=== PATIENT | female | born 1985 | race Caucasian/White ===

== ENCOUNTER 2017-06-09 13:09 | Inpatient (IN) | payer MEDICAID ==
[2017-06-09] MEDS ORDERED: NORMAL SALINE 1000 ML 1,000 ML IV ONE ×2 (13:30→14:18)
[2017-06-09] MEDS ORDERED: ONDANSETRON HCL INJ/PF 4 MG/2 ML SDV IV ONE ×2 (13:30→18:27)
[2017-06-09] MEDS ORDERED: HYDROMORPHONE HCL INJ/PF 2 MG/ML AMPULE IV ONE (13:32)
--- NOTE | 2017-06-09 13:34 | ER Document Report ---
ED Medical Screen (RME) - General Chief Complaint: Abdominal Pain Stated Complaint: ABDOMINAL PAIN Time Seen by Provider: 06/09/17 13:27 Notes: 31-year-old female patient complaining of 4 days of severe abdomen and back pain. Some vomiting yesterday, reports large-volume liquid vomiting today on the way here. Prior history of excessive narcotic use, none found in the [place] database since prescription last filled near the end of December 2016. It appears clonazepam was also stopped the next month. See the print out from the [place] database for the last 2 years. I have greeted and performed a rapid initial assessment of this patient. A comprehensive ED assessment and evaluation of the patient, analysis of test results and completion of the medical decision making process will be conducted by additional ED providers. TRAVEL OUTSIDE OF THE U.S. IN LAST 30 DAYS: No - Related Data Allergies/Adverse Reactions: diphenhydramine [From Benadryl] Allergy (Verified 06/09/17 13:23) Past Medical History - Social History Family history: Malignancy - pancreatic, Other - crohn's disease Endocrine Medical History: Reports: Hx Diabetes Mellitus Type 1 Psychiatric Medical History: Reports: Hx Anxiety Past Surgical History: Reports: Hx Appendectomy
[2017-06-09] MEDS ORDERED: MORPHINE SULFATE 10 MG/ML INJ IV ONE (14:31)
[2017-06-09] MEDS ORDERED: FENTANYL CITRATE INJ/PF 100 MCG/2 ML AMPUL IV ONE ×2 (15:00→18:27)
[2017-06-09 16:02] LABS: APPEARANCE,URINE CLEAR; COLOR,URINE STRAW; GLUCOSE, URINE 1000 mg/dL (NEGATIVE)
[2017-06-09 16:03] LABS: BILIRUBIN,URINE NEGATIVE (NEGATIVE); KETONES,URINE 300 mg/dL (NEGATIVE); LEUKOCYTE ESTERASE,URINE NEGATIVE (NEGATIVE); NITRITE,URINE NEGATIVE (NEGATIVE); PROTEIN,URINE NEGATIVE (NEGATIVE); URINE SPECIFIC GRAVITY 1.024; UROBILINOGEN,URINE NEGATIVE mg/dL (<2.0)
[2017-06-09 16:38] LABS: ABSOLUTE BASOPHILS # (AUTO) 0.1 10^3/uL (0.0-0.2); ABSOLUTE LYMPHOCYTES (AUTO) 1.9 10^3/uL (0.5-4.7); ABSOLUTE MONOCYTES (AUTO) 0.8 10^3/uL (0.1-1.4); ABSOLUTE NEUT (AUTO) 15.8 10^3/uL (1.7-8.2); BASOPHILS % (AUTO) 0.4 % (0-2); HEMATOCRIT 41.6 % (36.0-47.0); LYMPHOCYTES % (AUTO) 10.2 % (13-45); MEAN CORPUSCULAR HEMOGLOBIN 30.2 pg (27.0-33.4); MEAN CORPUSCULAR HGB CONC 33.6 g/dL (32.0-36.0); MEAN CORPUSCULAR VOLUME 90 fl (80-97); MONOCYTES % (AUTO) 4.4 % (3-13); RED BLOOD COUNT 4.63 10^6/uL (3.72-5.28); RED CELL DISTRIBUTION WIDTH 12.7 % (11.5-14.0); TOTAL CELLS COUNTED % (AUTO) 100 %; WHITE BLOOD COUNT 18.5 10^3/uL (4.0-10.5)
[2017-06-09 16:44] LABS: VENOUS BLOOD BASE EXCESS -6.9 mmol/L; VENOUS BLOOD HCO3 18.6 mmol/L (20-32); VENOUS BLOOD PCO2 37.4 mmHg (35-63); VENOUS BLOOD PH 7.31 (7.30-7.42)
[2017-06-09 17:01] LABS: ALANINE AMINOTRANSFERASE 22 U/L (9-52); ALBUMIN 5.5 g/dL (3.5-5.0); ALKALINE PHOSPHATASE 87 U/L (38-126); ASPARTATE AMINO TRANSFERASE 16 U/L (14-36); BILIRUBIN,DIRECT 0.3 mg/dL (0.0-0.4); BILIRUBIN,TOTAL 0.5 mg/dL (0.2-1.3); BLOOD UREA NITROGEN 22 mg/dL (7-20); CHLORIDE 82 mmol/L (98-107); POTASSIUM 4.4 mmol/L (3.6-5.0); TOTAL PROTEIN 8.2 g/dL (6.3-8.2)
[2017-06-09 17:06] LABS: CARBON DIOXIDE 18 mmol/L (22-30); SODIUM 133.1 mmol/L (137-145)
[2017-06-09 17:16] LABS: ANION GAP 33 (5-19); GLUCOSE 458 mg/dL (75-110)
[2017-06-09 17:18] LABS: PLATELET COUNT 311 10^3/uL (150-450)
[2017-06-09] MEDS ORDERED: GLUCAGON,HUMAN RECOMB 1 MG INJ IM PRN (17:24)
[2017-06-09] MEDS ORDERED: DEXTROSE 40% GEL 15 GM TUBE PO PRN ×2 (17:24)
[2017-06-09] MEDS ORDERED: DEXTROSE 50%-WATER 25 GM/50 ML DISP.SYRIN IV PRN ×2 (17:24)
[2017-06-09] MEDS ORDERED: NORMAL SALINE 100 ML with INSULIN REGULAR, HUMAN 100 UNIT IV PRN ×2 (17:24)
[2017-06-09] MEDS ORDERED: POTASSI CL 20 MEQ/50 ML RIDER 20 MEQ/50 ML RTUPB IV ONE (17:28)
--- NOTE | 2017-06-09 17:54 | ER Document Report ---
ED GI/ - General Chief Complaint: Abdominal Pain Stated Complaint: ABDOMINAL PAIN Time Seen by Provider: 06/09/17 13:27 Mode of Arrival: Ambulatory Information source: Patient, Relative Notes: Patient is a 31-year-old female type I diabetic who presents to the ER today for abdominal pain and vomiting 4 days worsening, she does have chronic constipation and states that this is normal for her and it comes in waves. Patient has not had a good bowel movement in "I do not know when." Patient went to [facility] yesterday and they did x-rays of her abdomen, showing constipation, put her on lactulose. Patient's blood sugars have been running in the 400s over the last few days even though she has been taking her insulin as directed. Father is with her and states that she has been compliant with her medications. She denies any cough, upper respiratory symptoms, burning with urination, fevers or chills. She states that yesterday at [facility] they did not even check her blood sugar. TRAVEL OUTSIDE OF THE [place] IN LAST 30 DAYS: No - Related Data Allergies/Adverse Reactions: diphenhydramine [From Benadryl] Allergy (Verified 06/09/17 13:23) Past Medical History - General Information source: Patient, Parent - Social History Smoking Status: Current Every Day Smoker Frequency of alcohol use: None Drug Abuse: Marijuana Family History: Reviewed & Not Pertinent Patient has suicidal ideation: No Patient has homicidal ideation: No Endocrine Medical History: Reports: Hx Diabetes Mellitus Type 1 Renal/ Medical History: Denies: Hx Peritoneal Dialysis Psychiatric Medical History: Reports: Hx Anxiety, Hx Bipolar Disorder Past Surgical History: Reports: Hx Appendectomy Review of Systems - Review of Systems Constitutional: No symptoms reported EENT: No symptoms reported Cardiovascular: No symptoms reported Respiratory: No symptoms reported Gastrointestinal: See HPI Genitourinary: No symptoms reported Female Genitourinary: No symptoms reported Musculoskeletal: No symptoms reported Skin: No symptoms reported Hematologic/Lymphatic: No symptoms reported Neurological/Psychological: No symptoms reported Physical Exam - Vital signs Vitals: Temp Pulse Resp BP Pulse Ox 97.7 F 126 H 16 135/100 H 99 06/09/17 13:12 06/09/17 13:12 06/09/17 13:12 06/09/17 13:12 06/09/17 13:12 - Notes Notes: PHYSICAL EXAMINATION: GENERAL: Actively vomiting, writhing in pain, in moderate acute distress. HEAD: Atraumatic, normocephalic. EYES: Pupils equal round and reactive to light, extraocular movements intact, sclera anicteric, conjunctiva are normal. NECK: Normal range of motion, supple without lymphadenopathy LUNGS: CTAB and equal. No wheezes rales or rhonchi. HEART: Regular rate and rhythm without murmurs ABDOMEN: Soft, mild diffuse tenderness. No guarding, no rebound BACK: no vertebral tenderness, normal ROM GI/: no CVA tenderness EXTREMITIES: Normal range of motion, no pitting edema. No cyanosis. NEUROLOGICAL: Cranial nerves grossly intact. Normal sensory/motor exams. PSYCH: Tearful SKIN: Warm, Dry, normal turgor, no rashes or lesions noted Course - Re-evaluation Re-evalutation: 06/09/17 18:31 Glucose of 458, white blood cell count of 18.5, osmolality elevated at 304, anion gap of 33, bicarb of 18, patient is in DKA. Urinalysis negative for infection, CAT scan reveals no acute pathology of the abdomen and pelvis with IV and oral contrast. Dr. Capone accepts admission at this time for DKA. Patient started on insulin infusion, given potassium for the insulin infusion, 2 L of IV fluids, pain medication, nausea medication. Maintenance fluids. Nausea and vomiting at this time has subsided. 06/09/17 18:43 06/09/17 18:43 - Vital Signs Vital signs: Temp Pulse Resp BP Pulse Ox 97.7 F 126 H 16 135/100 H 99 06/09/17 13:12 06/09/17 13:12 06/09/17 13:12 06/09/17 13:12 06/09/17 13:12 - Laboratory Result Diagrams: 06/09/17 16:26 06/09/17 16:26 Laboratory results interpreted by me: 06/09/17 06/09/17 06/09/17 13:20 14:33 16:26 WBC 18.5 H Seg Neutrophils % 85.0 H Lymphocytes % 10.2 L Absolute Neutrophils 15.8 H VBG HCO3 Sodium Chloride Carbon Dioxide Anion Gap BUN Glucose POC Glucose 458 H* Serum Osmolality Albumin Urine Glucose (UA) 1000 H Urine Ketones 300 H Urine Blood SMALL H 06/09/17 06/09/17 06/09/17 16:26 16:26 16:26 WBC Seg Neutrophils % Lymphocytes % Absolute Neutrophils VBG HCO3 18.6 L Sodium 133.1 L Chloride 82 L Carbon Dioxide 18 L Anion Gap 33 H BUN 22 H Glucose 458 H* POC Glucose Serum Osmolality 304 H Albumin 5.5 H Urine Glucose (UA) Urine Ketones Urine Blood Discharge - Discharge Clinical Impression: DKA (diabetic ketoacidoses) Qualifiers: Diabetes mellitus type: type 1 Constipation Qualifiers: Constipation type: unspecified constipation type Qualified Code(s): K59.00 - Constipation, unspecified Condition: Stable Disposition: ADMITTED INPATIENT Admitting Provider: [facility] Unit Admitted: [facility]
[2017-06-09] MEDS ORDERED: RINGERS SOLUTION,LACTATED 1,000 ML IV PRN (17:55)
--- NOTE | 2017-06-09 17:59 | RADIOLOGY REPORT (SQ) ---
EXAM DESCRIPTION: CT ABD/PELVIS WITH IV ORAL COMPLETED DATE/TIME: 06/09/2017 5:46 pm REASON FOR STUDY: abd pain, vomiting COMPARISON: None. TECHNIQUE: CT scan of the abdomen and pelvis performed using helical scanning technique with dynamic intravenous contrast injection. No oral contrast. Images reviewed with lung, soft tissue, and bone windows. Reconstructed coronal and sagittal MPR images reviewed. Delayed images for evaluation of the urinary system also acquired. All images stored on PACS. All CT scanners at this facility use dose modulation, iterative reconstruction, and/or weight based d osing when appropriate to reduce radiation dose to as low as reasonably achievable (ALARA). [facility]: Dose Right [facility]: CareDose [facility]: Dose Right [facility]: Teradose 4D [facility]: [employer] CONTRAST TYPE AND DOSE: contrast/concentration: Isovue 370.00 mg/ml; Total Contrast Delivered: 69.0 ml; Total Saline Delivered: 63.0 ml RENAL FUNCTION: BUN 22 creatinine 0.88. RADIATION DOSE: CT Rad equipment meets quality standard of care and radiation dose reduction techniq ues were employed. CTDIvol: 5.2 - 6.1 mGy. DLP: 604 mGy-cm.. LIMITATIONS: None. FINDINGS: LOWER CHEST: No significant findings. No nodules or infiltrates. LIVER: Normal size. No masses. No dilated ducts. SPLEEN: Normal size. No focal lesions. PANCREAS: No masses. No significant calcifications. No adjacent inflammation or peripancreatic fluid collections. Pancreatic duct not dilated. GALLBLADDER: No identified stones by CT criteria. No inflammatory changes to suggest cholecystitis. ADRENAL GLANDS: No significant masses or asymmetry. RIGHT KIDNEY AND URETER: No solid masses. No significant calcifications. No hydronephrosis or hyd roureter. LEFT KIDNEY AND URETER: No solid masses. No significant calcifications. No hydronephrosis or hydr oureter. AORTA AND VESSELS: No aneurysm. No dissection. Renal arteries, SMA, celiac without stenosis. RETROPERITONEUM: No retroperitoneal adenopathy, hemorrhage or masses. BOWEL AND PERITONEAL CAVITY: No masses or inflammatory changes. No free fluid or peritoneal masses. APPENDIX: Surgically absent. PELVIS: No mass. No free fluid. Normal bladder. ABDOMINAL WALL: No masses. No hernias. BONES: No significant or acute findings. OTHER: No other significant finding. IMPRESSION: NO SIGNIFICANT OR ACUTE FINDING IN THE ABDOMEN OR PELVIS ON CT SCAN WITH IV CONTRAST. TECHNICAL DOCUMENTATION: JOB ID: [id number] Quality ID # [id number]: Final reports with documentation of one or more dose reduction techniques (e.g., Au tomated exposure control, adjustment of the mA and/or kV according to patient size, use of iterative reconstruction technique) 2010 [employer]- All Rights Reserved Reading location - IP/workstation name: [email or web address]
[2017-06-09] MEDS ORDERED: POTASSI CL 20 MEQ/50 ML RIDER 20 MEQ/50 ML RTUPB IV SCH (18:31)
[2017-06-09] MEDS ORDERED: NORMAL SALINE 1000 ML 2,000 ML IV ONE (18:32)
[2017-06-09] MEDS ORDERED: ACETAMINOPHEN 650 MG SUPP.RECT PR PRN (18:32)
[2017-06-09] MEDS ORDERED: IPRATROPIUM/ALBUTEROL 0.5-2.5 MG/3 ML AMPUL NEB PRN (18:32)
[2017-06-09] MEDS ORDERED: ONDANSETRON HCL INJ/PF 4 MG/2 ML SDV IV PRN (18:32)
[2017-06-09] MEDS ORDERED: PROMETHAZINE HCL 25 MG TABLET PO PRN (18:32)
[2017-06-09] MEDS ORDERED: ACETAMINOPHEN 325 MG TABLET PO PRN (18:32)
[2017-06-09] MEDS ORDERED: INSULIN REG, HUMAN 100 UNIT/ML 3 ML VIAL (PYX) ONE (18:35)
[2017-06-09] MEDS ORDERED: NA PHOS,M-B/NA PHOS,DI-BA (ADULT) 133 ML ENEMA PR PRN (18:36)
[2017-06-09] MEDS ORDERED: LACTULOSE SYRUP 20 GM/30 ML UDCUP PO ONE (19:00)
[2017-06-09 19:12] LABS: PHOSPHORUS 6.6 mg/dL (2.5-4.5)
[2017-06-09 19:27] LABS: URINE AMPHETAMINES SCREEN NEGATIVE; URINE BARBITURATES SCREEN NEGATIVE; URINE COCAINE SCREEN NEGATIVE; URINE METHADONE SCREEN NEGATIVE; URINE PHENCYCLIDINE SCREEN NEGATIVE
[2017-06-09 19:30] LABS: URINE BENZODIAZEPINES SCREEN UNCONFIRMED POSITIVE; URINE MARIJUANA (THC) SCREEN UNCONFIRMED POSITIVE
[2017-06-09] MEDS ORDERED: HALOPERIDOL LACTATE INJ 5 MG/1 ML VIAL IV ONE (20:00)
[2017-06-09 21:49] LABS: ALANINE AMINOTRANSFERASE 21 U/L (9-52); ALBUMIN 5.1 g/dL (3.5-5.0); ALKALINE PHOSPHATASE 70 U/L (38-126); ASPARTATE AMINO TRANSFERASE 15 U/L (14-36); BILIRUBIN,DIRECT 0.3 mg/dL (0.0-0.4); BILIRUBIN,TOTAL 0.5 mg/dL (0.2-1.3); BLOOD UREA NITROGEN 21 mg/dL (7-20); CARBON DIOXIDE 22 mmol/L (22-30); CHLORIDE 86 mmol/L (98-107); GLUCOSE 317 mg/dL (75-110); POTASSIUM 4.2 mmol/L (3.6-5.0); TOTAL PROTEIN 7.8 g/dL (6.3-8.2)
[2017-06-09 21:55] LABS: SODIUM 134.6 mmol/L (137-145)
[2017-06-09 21:56] LABS: ANION GAP 27 (5-19)
[2017-06-10 01:03] LABS: ANION GAP 18 (5-19); BLOOD UREA NITROGEN 22 mg/dL (7-20); CALCIUM 9.8 mg/dL (8.4-10.2); CARBON DIOXIDE 28 mmol/L (22-30); CHLORIDE 91 mmol/L (98-107); GLUCOSE 144 mg/dL (75-110); SODIUM 136.7 mmol/L (137-145)
[2017-06-10] MEDS: KETOROLAC TROMETHAMINE INJ/PF 30 MG/1 ML SDV IV PRN ×3 (01:25→20:09)
[2017-06-10] MEDS: HEPARIN SOD (PORCINE) 5,000 UNIT/ML 1 ML SYRINGE SUBCUT SCH ×2 (02:14→07:03)
[2017-06-10] MEDS ORDERED: HALOPERIDOL LACTATE INJ 5 MG/1 ML VIAL IV ONE (03:19)
[2017-06-10] MEDS ORDERED: LACTULOSE SYRUP 20 GM/30 ML UDCUP PO ONE (03:20)
[2017-06-10] MEDS ORDERED: POTASSI CL 20 MEQ/D5-1/2NS 1L 1,000 ML IV PRN ×2 (04:00→06:25)
[2017-06-10 06:06] LABS: ABSOLUTE BASOPHILS # (AUTO) 0.1 10^3/uL (0.0-0.2); ABSOLUTE EOSINOPHILS # (AUTO) 0.2 10^3/uL (0.0-0.6); ABSOLUTE LYMPHOCYTES (AUTO) 3.9 10^3/uL (0.5-4.7); ABSOLUTE MONOCYTES (AUTO) 1.3 10^3/uL (0.1-1.4); ABSOLUTE NEUT (AUTO) 8.4 10^3/uL (1.7-8.2); BASOPHILS % (AUTO) 0.7 % (0-2); EOSINOPHILS % (AUTO) 1.4 % (0-6); HEMATOCRIT 40.4 % (36.0-47.0); HEMOGLOBIN 13.8 g/dL (12.0-15.5); LYMPHOCYTES % (AUTO) 28.1 % (13-45); MEAN CORPUSCULAR HEMOGLOBIN 30.1 pg (27.0-33.4); MEAN CORPUSCULAR HGB CONC 34.2 g/dL (32.0-36.0); MEAN CORPUSCULAR VOLUME 88 fl (80-97); MONOCYTES % (AUTO) 9.4 % (3-13); PLATELET COUNT 285 10^3/uL (150-450); RED BLOOD COUNT 4.59 10^6/uL (3.72-5.28); RED CELL DISTRIBUTION WIDTH 12.7 % (11.5-14.0); SEGMENTED NEUTROPHILS % (AUTO) 60.4 % (42-78); TOTAL CELLS COUNTED % (AUTO) 100 %; WHITE BLOOD COUNT 13.9 10^3/uL (4.0-10.5)
[2017-06-10 06:20] LABS: ANION GAP 13 (5-19); BLOOD UREA NITROGEN 24 mg/dL (7-20); CALCIUM 9.2 mg/dL (8.4-10.2); CARBON DIOXIDE 29 mmol/L (22-30); CHLORIDE 93 mmol/L (98-107); GLUCOSE 165 mg/dL (75-110); POTASSIUM 4.4 mmol/L (3.6-5.0); SODIUM 135.2 mmol/L (137-145)
--- NOTE | 2017-06-10 06:20 | PDOC H&P ---
History of Present Illness Admission Date/PCP: 06/09/17 19:14 Patient complains of: Abdominal pain, nausea and vomiting History of Present Illness: LIZA TOLEDO is a 31 year old female with a past medical history of bipolar depression, type 1 diabetes, polypharmacy, opiate seeking, chronic constipation , substance and tobacco abuse. Patient presents with dramatic complaint of nausea, vomiting and abdominal and acute on chronic back pain with severe constipation.. Patient is disheveled, accompanied by her father and examined with a nurse shuttle bus driver. Patient admits several days of nausea vomiting, excessive thirst and polyuria intolerant of p.o. and subsequent discontinuation of insulin despite uncontrolled hyperglycemia. Patient recognizes these symptoms as Diabetic ketoacidosis. Patient states she was recently evaluated at [facility] but discharged without documentation. Workup in the emergency room is significant for metabolic acidosis and constipation but negative for additional CT findings of the abdomen and pelvis. Patient insists CT imaging and report is false stating an endoscopy capsule has not yet passed. Review of the images do not reveal endoscopy capsule. Past Medical History Cardiac Medical History: Reports: None Pulmonary Medical History: Reports: None EENT Medical History: Reports: None Endocrine Medical History: Reports: Diabetes Mellitus Type 1 Renal/ Medical History: Reports: None Malignancy Medical History: Reports: None GI Medical History: Reports: None Musculoskeltal Medical History: Reports: Arthritis Skin Medical History: Reports: None Psychiatric Medical History: Reports: Bipolar Disorder, Substance Abuse, Tobacco Dependency Traumatic Medical History: Reports: None Hematology: Reports: None Infectious Medical History: Reports: None Past Surgical History Past Surgical History: Reports: Appendectomy Social History Information Source: Patient, [facility] Records Smoking Status: Current Every Day Smoker Drugs: Marijuana Hx Prescription Drug Abuse: Yes - See ER documentation of September 23, 2015 - Advance Directive Resuscitation Status: Full Code Family History Family History: None Parental Family History Reviewed: No - Patient agitation and uncooperative Children Family History Reviewed: NA - Patient uncooperative Sibling(s) Family History Reviewed.: NA Medication/Allergy Allergies/Adverse Reactions: diphenhydramine [From Benadryl] Allergy (Verified 06/09/17 13:23) Review of Systems ROS unobtainable: Due to mental status - Patient with decompensated bipolar with delusion Physical Exam Vital Signs: Temp Pulse Resp BP Pulse Ox 97.7 F 126 H 14 118/64 97 06/09/17 13:12 06/09/17 13:12 06/10/17 05:01 06/10/17 05:01 06/10/17 05:01 General appearance: PRESENT: cooperative, disheveled, severe distress, thin Head exam: PRESENT: atraumatic, normocephalic Eye exam: PRESENT: conjunctiva pink, EOMI, PERRLA. ABSENT: scleral icterus Ear exam: PRESENT: normal external ear exam Mouth exam: PRESENT: dry mucosa, tongue midline Teeth exam: PRESENT: poor dentation Neck exam: ABSENT: carotid bruit, JVD, lymphadenopathy, thyromegaly Respiratory exam: PRESENT: accessory muscle use, clear to auscultation radha, tachypnea. ABSENT: rales, rhonchi, wheezes Cardiovascular exam: PRESENT: RRR. ABSENT: diastolic murmur, rubs, systolic murmur Pulses: PRESENT: normal dorsalis pedis pul Vascular exam: PRESENT: normal capillary refill GI/Abdominal exam: PRESENT: hypoactive bowel sounds, soft, tenderness. ABSENT: ascites, diminished bowel sounds, distended, firm, guarding, hernia, mass Rectal exam: PRESENT: deferred Extremities exam: PRESENT: full ROM. ABSENT: calf tenderness, clubbing, pedal edema Neurological exam: PRESENT: alert, awake, oriented to person, oriented to place , oriented to time, oriented to situation, CN II-XII grossly intact. ABSENT: motor sensory deficit Psychiatric exam: PRESENT: agitated, anxious, manic. ABSENT: homicidal ideation , suicidal ideation Focused psych exam: PRESENT: delusional Skin exam: PRESENT: dry, intact, warm. ABSENT: cyanosis, rash Results Laboratory Results: 06/09/17 06/10/17 21:15 00:10 Sodium 134.6 L 136.7 L Potassium 4.2 4.0 Chloride 86 L 91 L Carbon Dioxide 22 28 Anion Gap 27 H 18 BUN 21 H 22 H Creatinine 0.82 0.76 Est GFR ( Amer) > 60 > 60 Est GFR (Non-Af Amer) > 60 > 60 Glucose 317 H 144 H Calcium 10.0 9.8 Total Bilirubin 0.5 AST 15 ALT 21 Alkaline Phosphatase 70 Total Protein 7.8 Albumin 5.1 H Impressions: Abdomen/Pelvis CT 06/09/17 00:00 IMPRESSION: NO SIGNIFICANT OR ACUTE FINDING IN THE ABDOMEN OR PELVIS ON CT SCAN WITH IV CONTRAST. Assessment & Plan - Diagnosis (1) DKA (diabetic ketoacidoses) Qualifiers: Diabetes mellitus type: type 1 Is this a current diagnosis for this admission?: Yes Plan: Diabetic ketoacidosis patient has had some degree of polyuria polydipsia with nausea and uncontrolled hyperglycemia with supporting labs. Patient will receive IV fluids IV insulin serial chemistries every 6 hours for evaluation for electrolyte repletion. Continued evaluation for underlying cause if not found Patient will require diabetic education and consideration of mental health evaluation. (2) Bipolar affective Is this a current diagnosis for this admission?: Yes Plan: Haldol IV as needed consider mental health consult if not improved (3) Acute exacerbation of chronic low back pain Is this a current diagnosis for this admission?: Yes Plan: Patient provides contradictory history, please see ER provider documentation from September 23, 2015 (4) Constipation Qualifiers: Constipation type: unspecified constipation type Qualified Code(s): K59.00 - Constipation, unspecified Is this a current diagnosis for this admission?: Yes Plan: Bowel regiment, Fleet enema, lactulose twice daily - Time Time Spent: 50 to 70 Minutes - Inpatient Certification Medical Necessity: Need Close Monitoring Due to Risk of Patient Decompensation
[2017-06-10] MEDS: DOCUSATE SODIUM 100 MG CAPSULE PO SCH ×2 (09:59→17:15)
[2017-06-10 10:27] LABS: PHOSPHORUS 3.6 mg/dL (2.5-4.5)
[2017-06-10] MEDS ORDERED: (PENDING PHARMACY ID) (Lactulose [Enulose 10 Gm/15 Ml Oral Solution] 30 ML) PO PRN (10:52)
[2017-06-10] MEDS ORDERED: NORMAL SALINE 1000 ML 1,000 ML IV PRN (10:58)
[2017-06-10] MEDS ORDERED: (PENDING PHARMACY ID) (Quetiapine Fumarate [Seroquel] 50 MG) PO SCH (11:00)
[2017-06-10] MEDS ORDERED: (PENDING PHARMACY ID) (Clonazepam [Klonopin] 0.25 MG) PO SCH (11:00)
[2017-06-10] MEDS ORDERED: INSULIN LISPRO 100 UNIT/ML 3 ML VIAL SUBCUT SCH (11:00)
[2017-06-10] MEDS ORDERED: INSULIN DETEMIR 100 UNIT/ML 3 ML PEN SUBCUT ONE (12:30)
[2017-06-10] MEDS ORDERED: INSULIN REG, HUMAN 100 UNIT/ML 3 ML VIAL (PYX) SUBCUT PRN ×2 (12:40→15:13)
[2017-06-10] MEDS ORDERED: LACTULOSE SYRUP 20 GM/30 ML UDCUP PO PRN (12:46)
[2017-06-10] MEDS ORDERED: CLONAZEPAM 1 MG TABLET PO ONE (13:00)
[2017-06-10] MEDS ORDERED: QUETIAPINE FUMARATE 25 MG TABLET PO ONE (13:00)
[2017-06-10 13:07] LABS: ANION GAP 17 (5-19); BLOOD UREA NITROGEN 23 mg/dL (7-20); CALCIUM 9.2 mg/dL (8.4-10.2); CARBON DIOXIDE 26 mmol/L (22-30); CHLORIDE 90 mmol/L (98-107); GLUCOSE 287 mg/dL (75-110); POTASSIUM 4.3 mmol/L (3.6-5.0); SODIUM 132.5 mmol/L (137-145)
[2017-06-10] MEDS: INSULIN LISPRO 100 UNIT/ML 3 ML VIAL SUBCUT PRN (13:07)
[2017-06-10] MEDS: DIVALPROEX SODIUM 500 MG TAB.SR.24H PO SCH ×2 (14:39→23:35)
[2017-06-10] MEDS: HYDROXYZINE PAMOATE 50 MG CAPSULE PO SCH ×2 (14:41→23:35)
[2017-06-10] MEDS ORDERED: HYDROMORPHONE HCL INJ/PF 2 MG/ML AMPULE IV PRN (14:53)
--- NOTE | 2017-06-10 15:06 | Progress Note ---
Provider Note Provider Note: Patient was see in the ER briefly for complaints of back pain. Vital signs blood pressure 112/66, heart rate 116 Respiratory rate 12 Sats 97% on room air Temperature not recorded Weak chronically ill-appearing female sitting up in bed appears uncomfortable. She is tearful. Lungs: Clear to auscultation bilaterally no use of accessory muscles no wheezing or crackles heard Cardiac: S1-S2 regular no peripheral edema no calf tenderness Abdomen: Soft, no focal tenderness Back: She has some nonspecific mild muscle tenderness along her entire back. Plan: DKA has resolved. Insulin drip switched off. She has been started back on Lantus and aspart with meals. Diabetic diet. Ordered lactulose the clock and an enema for her constipation. I discussed the plan of care with her father also is requesting that her constipation be treated. Refer for the rest of plan of care the history and physical done this morning.
[2017-06-10] MEDS ORDERED: DEXTROSE 50%-WATER 25 GM/50 ML DISP.SYRIN IV PRN ×2 (15:13)
[2017-06-10] MEDS ORDERED: DEXTROSE 40% GEL 15 GM TUBE PO PRN ×2 (15:13)
[2017-06-10] MEDS ORDERED: GLUCAGON,HUMAN RECOMB 1 MG INJ IM PRN (15:13)
[2017-06-10] MEDS: LACTULOSE SYRUP 20 GM/30 ML UDCUP PO SCH ×2 (17:15→23:35)
[2017-06-10] MEDS ORDERED: FENTANYL CITRATE INJ/PF 100 MCG/2 ML AMPUL IV ONE (18:30)
[2017-06-10 19:08] LABS: ANION GAP 13 (5-19); BLOOD UREA NITROGEN 25 mg/dL (7-20); CALCIUM 9.7 mg/dL (8.4-10.2); CARBON DIOXIDE 28 mmol/L (22-30); CHLORIDE 94 mmol/L (98-107); GLUCOSE 195 mg/dL (75-110); POTASSIUM 3.9 mmol/L (3.6-5.0); SODIUM 134.9 mmol/L (137-145)
[2017-06-10] MEDS ORDERED: ZOLPIDEM TARTRATE 5 MG TABLET PO PRN (20:55)
[2017-06-10] MEDS ORDERED: QUETIAPINE FUMARATE 100 MG TABLET PO SCH (22:00)
[2017-06-11 01:12] LABS: ANION GAP 8 (5-19); BLOOD UREA NITROGEN 27 mg/dL (7-20); CALCIUM 9.4 mg/dL (8.4-10.2); CARBON DIOXIDE 32 mmol/L (22-30); CHLORIDE 95 mmol/L (98-107); GLUCOSE 294 mg/dL (75-110); POTASSIUM 3.4 mmol/L (3.6-5.0); SODIUM 134.8 mmol/L (137-145)
[2017-06-11] MEDS: INSULIN LISPRO 100 UNIT/ML 3 ML VIAL SUBCUT PRN (01:33)
[2017-06-11] MEDS: DIVALPROEX SODIUM 500 MG TAB.SR.24H PO SCH (06:30)
[2017-06-11] MEDS: HYDROXYZINE PAMOATE 50 MG CAPSULE PO SCH (06:30)
[2017-06-11 06:56] LABS: ALANINE AMINOTRANSFERASE 19 U/L (9-52); ALBUMIN 4.2 g/dL (3.5-5.0); ALKALINE PHOSPHATASE 72 U/L (38-126); ANION GAP 10 (5-19); ASPARTATE AMINO TRANSFERASE 16 U/L (14-36); BILIRUBIN,DIRECT 0.3 mg/dL (0.0-0.4); BILIRUBIN,TOTAL 0.3 mg/dL (0.2-1.3); BLOOD UREA NITROGEN 22 mg/dL (7-20); CALCIUM 9.8 mg/dL (8.4-10.2); CARBON DIOXIDE 29 mmol/L (22-30); CHLORIDE 98 mmol/L (98-107); GLUCOSE 159 mg/dL (75-110); PHOSPHORUS 2.9 mg/dL (2.5-4.5); POTASSIUM 3.6 mmol/L (3.6-5.0); SODIUM 137.4 mmol/L (137-145); TOTAL PROTEIN 7.5 g/dL (6.3-8.2)
[2017-06-11] MEDS ORDERED: INSULIN DETEMIR 100 UNIT/ML 3 ML PEN SUBCUT SCH (08:00)
[2017-06-11] MEDS: LACTULOSE SYRUP 20 GM/30 ML UDCUP PO SCH (09:49)
[2017-06-11] MEDS: DOCUSATE SODIUM 100 MG CAPSULE PO SCH (09:49)
[2017-06-11] MEDS: KETOROLAC TROMETHAMINE INJ/PF 30 MG/1 ML SDV IV PRN (09:50)
[2017-06-11] MEDS ORDERED: CLONAZEPAM 1 MG TABLET PO SCH (10:00)
[2017-06-11] MEDS ORDERED: QUETIAPINE FUMARATE 25 MG TABLET PO SCH (10:00)
[2017-06-11 12:40] VITALS: BP 139/89
--- NOTE | 2017-06-11 18:37 | PDOC DISCHARGE SUMMARY ---
General - Admit/Disc Date/PCP Admission Date/Primary Care Provider: 06/09/17 19:14 Discharge Date: 06/11/17 - Discharge Diagnosis (1) DKA (diabetic ketoacidoses) Is this a current diagnosis for this admission?: Yes (2) Acute exacerbation of chronic low back pain Is this a current diagnosis for this admission?: Yes (3) Bipolar affective Is this a current diagnosis for this admission?: Yes (4) Constipation Is this a current diagnosis for this admission?: Yes - Additional Information Resuscitation Status: Full Code Discharge Diet: Diabetic Discharge Activity: Activity As Tolerated Home Medications: Clonazepam [Klonopin] 0.25 mg PO DAILY 06/10/17 Divalproex Sodium [Divalproex Sodium ER] 500 mg PO Q8 06/10/17 Hydroxyzine Pamoate [Vistaril 50 mg Capsule] 50 mg PO Q8 06/10/17 Insulin Detemir [Levemir Insulin 100 units/mL] 30 unit SQ QAM 06/10/17 Insulin Lispro [Humalog Insulin (Lispro) 100 unit/mL] 1 unit SQ ACHS 06/10/17 Lactulose [Enulose 10 gm/15 mL Oral Solution] 30 ml PO Q12HP PRN 06/10/17 Quetiapine Fumarate [Seroquel 100 mg Tablet] 200 mg PO QHS 06/10/17 Quetiapine Fumarate [Seroquel] 50 mg PO DAILY 06/10/17 History of Present Illness History of Present Illness: LIZA TOLEDO is a 32 year old female with a past medical history of bipolar depression, type 1 diabetes, polypharmacy, opiate seeking, chronic constipation , substance and tobacco abuse. Patient presents with nausea, vomiting, abdominal pain and acute on chronic back pain with severe constipation. Hospital Course Hospital Course: She had mild/early DKA and was started on IV fluids and an insulin drip. Her metabolic abnormalities resolved quite rapidly. Her hospital stay was uneventful. No nausea, vomiting, and acute on chronic back pain also improved. At the time of discharge, she was eager to leave, desiring to go to her gastroenterology appointment. Physical Exam Vital Signs: Temp Pulse Resp BP Pulse Ox 98.7 F 105 H 14 139/89 H 100 06/11/17 11:00 06/11/17 11:00 06/11/17 11:00 06/11/17 11:00 06/11/17 11:00 Intake & Output 06/10/17 06/11/17 06/12/17 06:59 06:59 06:59 Intake Total 480 Output Total 700 Balance -220 Weight 59.1 kg General appearance: PRESENT: no acute distress Head exam: PRESENT: atraumatic, normocephalic Eye exam: PRESENT: EOMI, PERRLA Respiratory exam: PRESENT: clear to auscultation radha. ABSENT: rales, rhonchi, wheezes Cardiovascular exam: PRESENT: RRR. ABSENT: diastolic murmur, rubs, systolic murmur GI/Abdominal exam: PRESENT: normal bowel sounds, soft. ABSENT: distended, guarding, mass, organolmegaly, rebound, tenderness Musculoskeletal exam: PRESENT: ambulatory Neurological exam: PRESENT: alert, awake, oriented to person, oriented to place , oriented to time, oriented to situation, CN II-XII grossly intact. ABSENT: motor sensory deficit Psychiatric exam: PRESENT: appropriate affect, normal mood. ABSENT: homicidal ideation, suicidal ideation Results Laboratory Results: 06/10/17 05:50 06/11/17 05:37 06/10/17 06/11/17 06/11/17 18:40 00:18 05:37 Sodium 134.9 L 134.8 L 137.4 Potassium 3.9 3.4 L 3.6 Chloride 94 L 95 L 98 Carbon Dioxide 28 32 H 29 Anion Gap 13 8 10 BUN 25 H 27 H 22 H Creatinine 0.66 0.69 0.66 Est GFR ( Amer) > 60 > 60 > 60 Est GFR (Non-Af Amer) > 60 > 60 > 60 Glucose 195 H 294 H 159 H Calcium 9.7 9.4 9.8 Phosphorus 2.9 Magnesium 2.2 Total Bilirubin 0.3 AST 16 ALT 19 Alkaline Phosphatase 72 Total Protein 7.5 Albumin 4.2 TSH 06/11/17 05:37 Sodium Potassium Chloride Carbon Dioxide Anion Gap BUN Creatinine Est GFR ( Amer) Est GFR (Non-Af Amer) Glucose Calcium Phosphorus Magnesium Total Bilirubin AST ALT Alkaline Phosphatase Total Protein Albumin TSH 3.79 Impressions: Abdomen/Pelvis CT 06/09/17 00:00 IMPRESSION: NO SIGNIFICANT OR ACUTE FINDING IN THE ABDOMEN OR PELVIS ON CT SCAN WITH IV CONTRAST. Qualifiers - * PATEINT BEING DISCHARGED WITH ANY OF THE FOLLOWING DIAGNOSIS?: No Plan Time Spent: Greater than 30 Minutes - 35 minutes
== END 2017-06-11 13:53 | disposition home or self-care (01) | DRG 639 ==
LOC: ER 13:09 → EH 19:14 → 5 06-10 15:27
PROVIDERS: ADMIT Internal Medicine; ATTEND Internal Medicine
PROC: 3E0F73Z Introduction of Anti-inflammatory into Respiratory Tract, Via Natural or Artificial Opening (ICD-10-PCS; principal; 2017-06-10)
DX: E10.10 Type 1 diabetes mellitus with ketoacidosis without coma (principal); G89.29 Other chronic pain; M54.5 Low back pain; F31.9 Bipolar disorder, unspecified; K59.09 Other constipation; M19.90 Unspecified osteoarthritis, unspecified site; F17.210 Nicotine dependence, cigarettes, uncomplicated; F41.9 Anxiety disorder, unspecified; Z79.4 Long term (current) use of insulin; Z79.899 Other long term (current) drug therapy; Z76.5 Malingerer [conscious simulation]; Z88.8 Allergy status to other drugs, medicaments and biological substances; Z80.0 Family history of malignant neoplasm of digestive organs
CPT/HCPCS: 36415; 74177; 80048; 80053; 80307; 81001; 81025; 82803; 82962; 83036; 83605; 83690; 83735; 83930; 84100; 84443; 84703; 85025; 96361; 96365; 96375; 96376; 99285; J1630; J1815; J1885; J2270; J2405; J3010; J3480; J3490; J7030

== ENCOUNTER 2017-07-16 12:35 | Emergency (ER) | payer MEDICAID ==
--- NOTE | 2017-07-16 13:04 | ER Document Report ---
ED Medical Screen (RME) - General Chief Complaint: Back Pain Stated Complaint: BOWEL MOVEMENT ISSUE,BACK PAIN Time Seen by Provider: 07/16/17 12:48 TRAVEL OUTSIDE OF THE [place] IN LAST 30 DAYS: No - HPI Notes: 07/16/17 13:03 Uncontrolled diabetic with history of stool impaction coming in for lower back pain. States bowel movement yesterday however father states that normal dominance for her are very small pellets. Blood sugar at home was in the 300s. Patient states similar presentation when diagnosed with DKA in the past - Related Data Allergies/Adverse Reactions: diphenhydramine [From Benadryl] Allergy (Verified 07/16/17 12:38) Past Medical History - Social History Family history: Malignancy - pancreatic, Other - crohn's disease Endocrine Medical History: Reports: Hx Diabetes Mellitus Type 1 Renal/ Medical History: Denies: Hx Peritoneal Dialysis Musculoskeltal Medical History: Reports Hx Arthritis Psychiatric Medical History: Reports: Hx Anxiety, Hx Bipolar Disorder Past Surgical History: Reports: Hx Appendectomy - Immunizations History of Influenza Vaccine for 12/2016 - 05/2017 Season: Refused Review of Systems - Review of Systems Gastrointestinal: Abdominal pain Musculoskeletal: Back pain Physical Exam - Vital signs Vitals: Temp Pulse Resp BP Pulse Ox 98.5 F 97 24 H 145/100 H 98 07/16/17 12:41 07/16/17 12:41 07/16/17 12:41 07/16/17 12:41 07/16/17 12:41 - Respiratory Respiratory status: No respiratory distress Chest status: Nontender Breath sounds: Normal Chest palpation: Normal Course - Vital Signs Vital signs: Temp Pulse Resp BP Pulse Ox 98.5 F 97 24 H 145/100 H 98 07/16/17 12:41 07/16/17 12:41 07/16/17 12:41 07/16/17 12:41 07/16/17 12:41 Doctor's Discharge - Discharge Referrals: AMAN PARR MD [Primary Care Provider] - Follow up as needed
[2017-07-16] MEDS ORDERED: NORMAL SALINE 1000 ML 1,000 ML IV ONE ×2 (13:05→14:51)
[2017-07-16 13:53] LABS: ABSOLUTE BASOPHILS # (AUTO) 0.1 10^3/uL (0.0-0.2); ABSOLUTE LYMPHOCYTES (AUTO) 2.8 10^3/uL (0.5-4.7); ABSOLUTE MONOCYTES (AUTO) 0.6 10^3/uL (0.1-1.4); ABSOLUTE NEUT (AUTO) 7.1 10^3/uL (1.7-8.2); EOSINOPHILS % (AUTO) 0.4 % (0-6); HEMATOCRIT 39.5 % (36.0-47.0); HEMOGLOBIN 13.7 g/dL (12.0-15.5); LYMPHOCYTES % (AUTO) 25.9 % (13-45); MEAN CORPUSCULAR HGB CONC 34.6 g/dL (32.0-36.0); MEAN CORPUSCULAR VOLUME 90 fl (80-97); PLATELET COUNT 343 10^3/uL (150-450); RED BLOOD COUNT 4.41 10^6/uL (3.72-5.28); RED CELL DISTRIBUTION WIDTH 13.6 % (11.5-14.0); SEGMENTED NEUTROPHILS % (AUTO) 66.7 % (42-78); TOTAL CELLS COUNTED % (AUTO) 100 %; WHITE BLOOD COUNT 10.7 10^3/uL (4.0-10.5)
[2017-07-16] MEDS ORDERED: ONDANSETRON HCL INJ/PF 4 MG/2 ML SDV IV ONE (13:56)
[2017-07-16] MEDS ORDERED: HYDROMORPHONE HCL INJ/PF 2 MG/ML AMPULE IV ONE (13:56)
[2017-07-16 14:19] LABS: ALBUMIN 4.7 g/dL (3.5-5.0); ASPARTATE AMINO TRANSFERASE 18 U/L (14-36); BILIRUBIN,DIRECT 0.4 mg/dL (0.0-0.4); BLOOD UREA NITROGEN 10 mg/dL (7-20); CALCIUM 9.8 mg/dL (8.4-10.2); CARBON DIOXIDE 24 mmol/L (22-30); CHLORIDE 90 mmol/L (98-107); GLUCOSE 293 mg/dL (75-110); NEONATAL BILIRUBIN RESULT 0.5 mg/dL (0.1-1.1); POTASSIUM 3.4 mmol/L (3.6-5.0)
[2017-07-16 14:28] LABS: ALANINE AMINOTRANSFERASE 14 U/L (9-52); ALKALINE PHOSPHATASE 82 U/L (38-126); SODIUM 133.9 mmol/L (137-145)
[2017-07-16 14:29] LABS: ANION GAP 20 (5-19)
--- NOTE | 2017-07-16 14:37 | RADIOLOGY REPORT (SQ) ---
EXAM DESCRIPTION: KUB/ABDOMEN (SINGLE VIEW) COMPLETED DATE/TIME: 07/16/2017 2:19 pm REASON FOR STUDY: constipation COMPARISON: None. NUMBER OF VIEWS: One view. TECHNIQUE: Supine radiographic image of the abdomen acquired. LIMITATIONS: None. FINDINGS: BOWEL GAS PATTERN: Abundant gas and fecal material from the cecum to the rectosigmoid colo n. CALCIFICATIONS: No suspicious calcifications. SOFT TISSUES: No gross mass or suggestion of organomegaly. HARDWARE: None. BONES: No bone lesions or fracture. OTHER: No other significant finding. IMPRESSION: Mild fecal retention. Reading location - IP/workstation name: [email or web address]
[2017-07-16] MEDS ORDERED: HALOPERIDOL LACTATE INJ 5 MG/1 ML VIAL IV ONE (14:51)
--- NOTE | 2017-07-16 15:05 | ER Document Report ---
ED General - General Chief Complaint: Back Pain Stated Complaint: BOWEL MOVEMENT ISSUE,BACK PAIN Time Seen by Provider: 07/16/17 12:48 TRAVEL OUTSIDE OF THE [place] IN LAST 30 DAYS: No - HPI Notes: 32-year-old female with severe chronic constipation, multiple GI issues as well as severe chronic low back pain who presents with pain and constipation. No patient was seen by a another provider prior to my evaluation, labs were ordered. Patient is frustrated because she has had the after mentioned symptoms. States that she will go days or longer without a bowel movement. She is tried what she describes as nearly every remedy for constipation to no avail. She is scheduled to see yet another GI specialist, however, the appointment has been moved down several weeks. She also complains of severe chronic low back pain which she thinks may be related to her constipation. This is ongoing for at least 2 years now. She admits that really none of this is changed, they are just frustrated and wanted to get her checked out because of the delay in her appointment. No other modifying factors, no other associated symptoms, no other provocative or palliative factors. Throbbing pain - Related Data Allergies/Adverse Reactions: diphenhydramine [From Benadryl] Allergy (Verified 07/16/17 12:38) Past Medical History - Social History Smoking Status: Current Some Day Smoker Family History: None Patient has suicidal ideation: No Patient has homicidal ideation: No - Medical History Notes: Chronic low back pain, chronic constipation Endocrine Medical History: Reports: Hx Diabetes Mellitus Type 1 Renal/ Medical History: Denies: Hx Peritoneal Dialysis Musculoskeltal Medical History: Reports Hx Arthritis Psychiatric Medical History: Reports: Hx Anxiety, Hx Bipolar Disorder Past Surgical History: Reports: Hx Appendectomy Review of Systems - Review of Systems Notes: Review of systems as in the history of present illness, otherwise negative. Physical Exam - Vital signs Vitals: Temp Pulse Resp BP Pulse Ox 98.5 F 97 24 H 145/100 H 98 07/16/17 12:41 07/16/17 12:41 07/16/17 12:41 07/16/17 12:41 07/16/17 12:41 - Notes Notes: General: Well developed . HEENT: Normocephalic, atraumatic. Pupils equal round reactive to light. No JVD. Chest: No trauma. Respiratory: Good air exchange, normal excursion. Cardiac: Regular rhythm. No murmurs or gallops. Abdomen: Soft, benign. Nondistended. Nontender. No distention. Back: No asymmetry or gross abnormality. Motor: Grossly normal power and tone. Neurologic: Alert, nonfocal. Cranial nerves II-12 are intact. Sensation intact. Vascular: Well perfused. Normal peripheral pulses. Skin: No petechiae or purpura. Skin changes of the lower back noted from heating pad use. Course - Re-evaluation Re-evalutation: 07/16/17 16:37 32-year-old female chronic constipation, chronic back pain. Appears she actually does not have an acute issue but is frustrated with her pain and wants to be evaluated now that her appointment is delayed. I did review the labs obtained by the provider who saw her prior to me., CBC and chemistries are unremarkable. This with the exception of his moderate elevated glucose. However, bicarb is normal, no evidence of DKA. Patient received IV fluids. I have given her haloperidol for nausea control pain modulation with good effect. She is asked to avoid opiates given her chronic constipation. She is no evidence of impaction, no evidence of obstruction. Nondistended benign abdomen. I believe she can follow-up as discussed. She is given a prescription for Compazine to use for nausea and pain modulation. - Vital Signs Vital signs: Temp Pulse Resp BP Pulse Ox 98.3 F 99 18 170/82 H 99 07/16/17 16:09 07/16/17 16:09 07/16/17 16:09 07/16/17 16:09 07/16/17 16:09 - Laboratory Result Diagrams: 07/16/17 13:09 07/16/17 13:09 Laboratory results interpreted by me: 07/16/17 07/16/17 07/16/17 12:51 13:09 13:09 WBC 10.7 H Sodium 133.9 L Potassium 3.4 L Chloride 90 L Anion Gap 20 H Glucose 293 H POC Glucose 285 H Urine Protein Urine Glucose (UA) Urine Ketones Urine Blood 07/16/17 15:10 WBC Sodium Potassium Chloride Anion Gap Glucose POC Glucose Urine Protein 100 H Urine Glucose (UA) >=500 H Urine Ketones 80 H Urine Blood LARGE H Discharge - Discharge Clinical Impression: Back pain Qualifiers: Back pain location: back pain in unspecified location Chronicity: chronic Back pain laterality: unspecified Qualified Code(s): M54.9 - Dorsalgia, unspecified Condition: Good Disposition: HOME, SELF-CARE Instructions: Low Back Pain ([facility]), Vomiting ([facility]) Prescriptions: Prochlorperazine Maleate [Compazine 10 mg Tablet] 10 mg PO ASDIR PRN #10 tablet PRN Reason: Prochlorperazine Maleate [Compazine 25 Mg Supp.Rect] 25 mg [place] Q12 #12 supp.rect Referrals: AMAN PARR MD [Primary Care Provider] - Follow up as needed
[2017-07-16 15:39] LABS: APPEARANCE,URINE CLOUDY; BILIRUBIN,URINE NEGATIVE (NEGATIVE); COLOR,URINE RED; GLUCOSE, URINE >=500 mg/dL (NEGATIVE); KETONES,URINE 80 mg/dL (NEGATIVE); LEUKOCYTE ESTERASE,URINE NEGATIVE (NEGATIVE); NITRITE,URINE NEGATIVE (NEGATIVE); PROTEIN,URINE 100 mg/dL (NEGATIVE); URINE SPECIFIC GRAVITY 1.025; UROBILINOGEN,URINE NEGATIVE mg/dL (<2.0)
[2017-07-16 16:09] VITALS: BP 170/82
== END 2017-07-16 16:09 | disposition home or self-care (01) ==
LOC: ER 12:35
DX: M54.9 Dorsalgia, unspecified (principal); K59.04 Chronic idiopathic constipation; M54.5 Low back pain; G89.29 Other chronic pain; E10.9 Type 1 diabetes mellitus without complications; F17.200 Nicotine dependence, unspecified, uncomplicated
CPT/HCPCS: 99284; 96361; 96374; 96375; 36415; 82962; 83690; 84703; 85025; 80053; 81001; 74018; J1630; J1170; J2405; J7030

== ENCOUNTER 2017-08-14 08:05 | Inpatient (IN) | payer MEDICAID ==
[2017-08-14] MEDS ORDERED: NORMAL SALINE 1000 ML 1,000 ML IV ONE ×2 (08:29→10:00)
--- NOTE | 2017-08-14 08:31 | ER Document Report ---
ED GI/ - General Chief Complaint: Nausea/Vomiting Stated Complaint: BACK PAIN Time Seen by Provider: 08/14/17 08:29 Mode of Arrival: Wheelchair Information source: Patient Notes: 32-year-old type I diabetic is complaining of exacerbation of her chronic lower thoracic back pain, nausea and vomiting since yesterday. No chest pain or shortness of breath, no abdominal pain, no diarrhea or constipation, no dysuria. She was admitted to the hospital June 2017 by the hospitalist group for DKA. She looks dehydrated. No fever or chills. TRAVEL OUTSIDE OF THE [place] IN LAST 30 DAYS: No - Related Data Allergies/Adverse Reactions: diphenhydramine [From Benadryl] Allergy (Verified 08/14/17 08:15) Past Medical History - General Information source: Patient - Social History Smoking Status: Current Every Day Smoker Frequency of alcohol use: None Drug Abuse: None Lives with: Family Family History: None Endocrine Medical History: Reports: Hx Diabetes Mellitus Type 1 Renal/ Medical History: Denies: Hx Peritoneal Dialysis Musculoskeltal Medical History: Reports Hx Arthritis Psychiatric Medical History: Reports: Hx Anxiety, Hx Bipolar Disorder Past Surgical History: Reports: Hx Appendectomy Review of Systems - Review of Systems Constitutional: See HPI EENT: No symptoms reported Cardiovascular: No symptoms reported Respiratory: No symptoms reported Gastrointestinal: See HPI Genitourinary: No symptoms reported Female Genitourinary: No symptoms reported Musculoskeletal: See HPI Skin: No symptoms reported Hematologic/Lymphatic: No symptoms reported Neurological/Psychological: No symptoms reported Physical Exam - Vital signs Vitals: Temp Pulse Resp BP Pulse Ox 98.0 F 66 18 166/59 H 99 08/14/17 08:07 08/14/17 08:07 08/14/17 08:07 08/14/17 08:07 08/14/17 08:07 Interpretation: Normal - General General appearance: Alert, Anxious Notes: Looks dry - HEENT Head: Normocephalic, Atraumatic Eyes: Normal Conjunctiva: Normal Pupils: PERRL Mucous membranes: Dry Pharynx: Erythema - Mild Neck: Supple - Respiratory Respiratory status: No respiratory distress Chest status: Nontender Breath sounds: Normal Chest palpation: Normal - Cardiovascular Rhythm: Regular Heart sounds: Normal auscultation Murmur: No - Abdominal Inspection: Normal Distension: No distension Bowel sounds: Normal Tenderness: Nontender. No: Tender Organomegaly: No organomegaly - Back Back: Normal, Nontender. No: CVA tenderness - Extremities General upper extremity: Normal inspection, Nontender, Normal color, Normal ROM , Normal temperature General lower extremity: Normal inspection, Nontender, Normal color, Normal ROM , Normal temperature, Normal weight bearing. No: Greg's sign - Neurological Neuro grossly intact: Yes Cognition: Normal Orientation: AAOx4 Dharmesh Coma Scale Eye Opening: Spontaneous Dharmesh Coma Scale Verbal: Oriented [place] Coma Scale Motor: Obeys Commands Dharmesh Coma Scale Total: 15 Speech: Normal Motor strength normal: LUE, RUE, LLE, RLE Sensory: Normal - Psychological Associated symptoms: Normal affect, Normal mood - Skin Skin Temperature: Warm Skin Moisture: Dry Skin Color: Normal Skin irregularity: negative: Rash Course - Re-evaluation Re-evalutation: 08/14/17 10:37 White count is 27 with segs 84%, urine is 1.025 with ketones and glucose, 7 white blood cells, urine culture is pending. Her anion gap is 23 and CO2 of 17. Consult Dr. Jem riley recommends admission for DKA. Negative test and the chest x-ray is negative. Dr. Randle will admit to IMCU for DKA, nausea and vomiting, chronic back pain 08/14/17 10:43 08/14/17 10:50 - Vital Signs Vital signs: Temp Pulse Resp BP Pulse Ox 98.0 F 66 18 166/59 H 99 08/14/17 08:07 08/14/17 08:07 08/14/17 08:07 08/14/17 08:07 08/14/17 08:07 - Laboratory Result Diagrams: 08/14/17 08:45 08/14/17 08:45 Laboratory results interpreted by me: 08/14/17 08/14/17 08/14/17 08:12 08:45 08:45 WBC 20.0 H RDW 14.4 H Seg Neuts % (Manual) 84 H Monocytes % (Manual) 1 L Abs Neuts (Manual) 16.8 H VBG pCO2 VBG HCO3 Carbon Dioxide 17 L Anion Gap 23 H Glucose 399 H POC Glucose 371 H Calcium 10.6 H Direct Bilirubin 0.6 H Total Protein 8.5 H Albumin 5.3 H Urine Protein Urine Glucose (UA) Urine Ketones Urine Blood 08/14/17 08/14/17 08:45 09:59 WBC RDW Seg Neuts % (Manual) Monocytes % (Manual) Abs Neuts (Manual) VBG pCO2 33.8 L VBG HCO3 17.9 L Carbon Dioxide Anion Gap Glucose POC Glucose Calcium Direct Bilirubin Total Protein Albumin Urine Protein 30 H Urine Glucose (UA) >=500 H Urine Ketones 80 H Urine Blood SMALL H Discharge - Discharge Clinical Impression: DKA (diabetic ketoacidoses), Nausea and vomiting Condition: Fair Disposition: ADMITTED INPATIENT Admitting Provider: Hospitalist Unit Admitted: IMCU Referrals: AMAN PARR MD [ACTIVE STAFF] - Follow up as needed
[2017-08-14] MEDS ORDERED: ONDANSETRON HCL INJ/PF 4 MG/2 ML SDV IV ONE (08:33)
[2017-08-14] MEDS ORDERED: MORPHINE SULFATE 10 MG/ML INJ IV ONE (08:55)
[2017-08-14 09:19] LABS: HEMATOCRIT 38.5 % (36.0-47.0); HEMOGLOBIN 12.8 g/dL (12.0-15.5); MEAN CORPUSCULAR HEMOGLOBIN 30.8 pg (27.0-33.4); MEAN CORPUSCULAR HGB CONC 33.1 g/dL (32.0-36.0); MEAN CORPUSCULAR VOLUME 93 fl (80-97); PLATELET COUNT 290 10^3/uL (150-450); RED BLOOD COUNT 4.14 10^6/uL (3.72-5.28); RED CELL DISTRIBUTION WIDTH 14.4 % (11.5-14.0); VENOUS BLOOD BASE EXCESS -6.9 mmol/L; VENOUS BLOOD HCO3 17.9 mmol/L (20-32); VENOUS BLOOD PCO2 33.8 mmHg (35-63); VENOUS BLOOD PH 7.34 (7.30-7.42)
[2017-08-14 09:38] LABS: ALANINE AMINOTRANSFERASE 23 U/L (9-52); ALBUMIN 5.3 g/dL (3.5-5.0); ALKALINE PHOSPHATASE 83 U/L (38-126); ASPARTATE AMINO TRANSFERASE 20 U/L (14-36); BILIRUBIN,DIRECT 0.6 mg/dL (0.0-0.4); BLOOD UREA NITROGEN 16 mg/dL (7-20); CALCIUM 10.6 mg/dL (8.4-10.2); CARBON DIOXIDE 17 mmol/L (22-30); POTASSIUM 4.5 mmol/L (3.6-5.0); TOTAL PROTEIN 8.5 g/dL (6.3-8.2)
[2017-08-14 09:44] LABS: CHLORIDE 98 mmol/L (98-107); SODIUM 138.2 mmol/L (137-145)
[2017-08-14 09:48] LABS: ABSOLUTE MONOCYTES # (MANUAL) 0.2 10^3/uL (0.1-1.4); ABSOLUTE NEUTROPHILS# (MANUAL) 16.8 10^3/uL (1.7-8.2); BASOPHILS % (MANUAL) 0 % (0-2); EOSINOPHILS % (MANUAL) 0 % (0-6); LYMPHOCYTES % (MANUAL) 15 % (13-45); MONOCYTES % (MANUAL) 1 % (3-13); SEGMENTED NEUTROPHILS % (MAN) 84 % (42-78); TOTAL CELLS COUNTED 100
[2017-08-14 09:49] LABS: PLATELET COMMENT ADEQUATE; RBC MORPHOLOGY COMMENT NORMO-CYTIC/CHROMIC
[2017-08-14 09:50] LABS: ANION GAP 23 (5-19)
[2017-08-14 09:51] LABS: GLUCOSE 399 mg/dL (75-110)
[2017-08-14 10:17] LABS: APPEARANCE,URINE CLEAR; BILIRUBIN,URINE NEGATIVE (NEGATIVE); COLOR,URINE STRAW; GLUCOSE, URINE >=500 mg/dL (NEGATIVE); KETONES,URINE 80 mg/dL (NEGATIVE); LEUKOCYTE ESTERASE,URINE NEGATIVE (NEGATIVE); NITRITE,URINE NEGATIVE (NEGATIVE); PROTEIN,URINE 30 mg/dL (NEGATIVE); URINE SPECIFIC GRAVITY 1.025; UROBILINOGEN,URINE NEGATIVE mg/dL (<2.0)
[2017-08-14] MEDS ORDERED: GLUCAGON,HUMAN RECOMB 1 MG INJ IM PRN (10:35)
[2017-08-14] MEDS ORDERED: DEXTROSE 50%-WATER 25 GM/50 ML DISP.SYRIN IV PRN ×4 (10:35→11:05)
[2017-08-14] MEDS ORDERED: DEXTROSE 40% GEL 15 GM TUBE PO PRN ×3 (10:35→11:05)
--- NOTE | 2017-08-14 10:45 | RADIOLOGY REPORT (SQ) ---
EXAM DESCRIPTION: CHEST 2 VIEWS COMPLETED DATE/TIME: 08/14/2017 10:37 am REASON FOR STUDY: thoracic back pain COMPARISON: None. EXAM PARAMETERS: NUMBER OF VIEWS: two views TECHNIQUE: Digital Frontal and Lateral radiographic views of the chest acquired. RADIATION DOSE: NA LIMITATIONS: none FINDINGS: LUNGS AND PLEURA: No opacities, masses or pneumothorax. No pleural effusion. MEDIASTINUM AND HILAR STRUCTURES: No masses or contour abnormalities. HEART AND VASCULAR STRUCTURES: Heart normal size. No evidence for failure. BONES: No acute findings. HARDWARE: None in the chest. OTHER: No other significant finding. IMPRESSION: NO ACUTE RADIOGRAPHIC FINDING IN THE CHEST. TECHNICAL DOCUMENTATION: JOB ID: [id number]- All Rights Reserved Reading location - IP/workstation name: [email or web address]
[2017-08-14] MEDS: NORMAL SALINE 100 ML with INSULIN REGULAR, HUMAN 100 UNIT IV PRN ×6 (10:57→12:03)
[2017-08-14] MEDS ORDERED: INSULIN REG, HUMAN 100 UNIT/ML 3 ML VIAL (PYX) ONE (10:59)
[2017-08-14] MEDS ORDERED: ONDANSETRON 4 MG TAB.RAPDIS PO PRN (11:05)
[2017-08-14] MEDS ORDERED: ONDANSETRON HCL INJ/PF 4 MG/2 ML SDV IV PRN (11:05)
[2017-08-14] MEDS ORDERED: ACETAMINOPHEN 325 MG TABLET PO PRN (11:05)
[2017-08-14] MEDS ORDERED: GLUCAGON,HUMAN RECOMB 1 MG INJ SUBCUT PRN (11:05)
[2017-08-14] MEDS ORDERED: IPRATROPIUM/ALBUTEROL 0.5-2.5 MG/3 ML AMPUL NEB PRN (11:05)
[2017-08-14] MEDS: NORMAL SALINE 1000 ML 1,000 ML IV PRN ×2 (11:48→12:03)
[2017-08-14 12:25] LABS: URINE AMPHETAMINES SCREEN NEGATIVE; URINE BARBITURATES SCREEN NEGATIVE; URINE BENZODIAZEPINES SCREEN NEGATIVE; URINE COCAINE SCREEN NEGATIVE; URINE MARIJUANA (THC) SCREEN UNCONFIRMED POSITIVE; URINE METHADONE SCREEN NEGATIVE; URINE PHENCYCLIDINE SCREEN NEGATIVE
[2017-08-14] MEDS ORDERED: PANTOPRAZOLE SODIUM 40 MG VIAL IV ONE (12:30)
[2017-08-14] MEDS ORDERED: DEXTROSE 5%-NORMAL SALINE 1,000 ML IV PRN (13:42)
[2017-08-14] MEDS ORDERED: (PENDING PHARMACY ID) (Clonazepam [Klonopin] 0.25 MG) PO PRN (13:48)
[2017-08-14] MEDS ORDERED: CLONAZEPAM 1 MG TABLET PO PRN (13:51)
--- NOTE | 2017-08-14 13:57 | PDOC H&P ---
History of Present Illness Admission Date/PCP: 08/14/17 11:01 MARY ANN GOODWIN-C Patient complains of: Intractable nausea and vomiting History of Present Illness: LIZA TOLEDO is a 32 year old female with a past medical history of Type 1 diabetes Bipolar disorder Chronic constipation Chronic back pain Substance abuse She presented to the hospital with intractable nausea and vomiting that started yesterday. She been unable to eat anything or take her insulin. In the emergency room she was found to be developing diabetic ketoacidosis and was started on IV fluids and an insulin drip and was referred for admission. The patient has had chronic problems with low back pain. She had been to [place] for an assessment of her chronic constipation which she felt was related to her back pain. She was given a prescription for Linzess which he says worked well for her constipation. She is complaining of back discomfort in the lower thoracic paraspinal muscle area. She says nothing has really worked for her in the past including muscle relaxants gabapentin or Lyrica. The patient says she cannot tolerate opiates since they make her nauseated. She is willing to try a lidocaine patch. Past Medical History Endocrine Medical History: Reports: Diabetes Mellitus Type 1 Musculoskeltal Medical History: Reports: Arthritis Psychiatric Medical History: Reports: Bipolar Disorder Past Surgical History Past Surgical History: Reports: Appendectomy Social History Lives with: Family Smoking Status: Current Every Day Smoker Frequency of Alcohol Use: Rare Hx Recreational Drug Use: Yes Drugs: Marijuana Hx Prescription Drug Abuse: No - Advance Directive Resuscitation Status: Full Code Family History Family History: Hypertension Parental Family History Reviewed: Yes Children Family History Reviewed: Yes Sibling(s) Family History Reviewed.: Yes Medication/Allergy Home Medications: Clonazepam [Klonopin] 0.25 mg PO DAILYP PRN 06/10/17 Divalproex Sodium [Divalproex Sodium ER] 500 mg PO Q8 06/10/17 Insulin Detemir [Levemir Insulin 100 units/mL] 30 unit SQ QAM 06/10/17 Insulin Lispro [Humalog Insulin (Lispro) 100 unit/mL] 0 unit SQ .SLIDINGSCALE Linaclotide [Linzess] 290 mcg PO DAILY 08/14/17 Allergies/Adverse Reactions: diphenhydramine [From Benadryl] Allergy (Verified 08/14/17 13:16) Review of Systems Constitutional: ABSENT: fever(s), headache(s) Eyes: ABSENT: visual disturbances Ears: ABSENT: hearing changes Nose, Mouth, and Throat: ABSENT: mouth pain Gastrointestinal: PRESENT: constipation, nausea, vomiting. ABSENT: abdominal pain, diarrhea, hematemesis Musculoskeletal: PRESENT: back pain. ABSENT: deformity Integumentary: ABSENT: pruritus, rash Neurological: ABSENT: focal weakness Psychiatric: PRESENT: anxiety Endocrine: ABSENT: heat intolerance Hematologic/Lymphatic: ABSENT: easy bleeding Allergic/Immunologic: ABSENT: seasonal rhinorrhea Physical Exam Vital Signs: Temp Pulse Resp BP Pulse Ox 99.3 F 87 22 H 134/77 H 100 08/14/17 13:13 08/14/17 13:13 08/14/17 13:13 08/14/17 13:13 08/14/17 13:13 General appearance: PRESENT: no acute distress Head exam: PRESENT: normocephalic Eye exam: PRESENT: PERRLA. ABSENT: scleral icterus Ear exam: PRESENT: normal external ear exam Mouth exam: PRESENT: moist Neck exam: ABSENT: tracheal deviation Respiratory exam: PRESENT: symmetrical, unlabored. ABSENT: crackles Cardiovascular exam: PRESENT: RRR GI/Abdominal exam: PRESENT: normal bowel sounds, soft. ABSENT: tenderness Rectal exam: PRESENT: deferred Gentrourinary exam: ABSENT: indwelling catheter Extremities exam: ABSENT: calf tenderness, pedal edema Neurological exam: PRESENT: alert, awake, oriented to person, oriented to place , oriented to time, oriented to situation Psychiatric exam: PRESENT: anxious Skin exam: ABSENT: petechiae Results Impressions: Chest X-Ray 08/14/17 10:10 IMPRESSION: NO ACUTE RADIOGRAPHIC FINDING IN THE CHEST. Assessment & Plan - Diagnosis (1) DKA (diabetic ketoacidoses) Is this a current diagnosis for this admission?: Yes Plan: IV fluids and IV Insulin gtt. Monitor glucose. Monitor BMP and electrolytes (2) Nausea and vomiting Is this a current diagnosis for this admission?: Yes Plan: As above. Antiemetics prn (3) Acute exacerbation of chronic low back pain Is this a current diagnosis for this admission?: Yes Plan: Tylenol prn Lidocaine patch (4) Bipolar affective Is this a current diagnosis for this admission?: Yes Plan: Continue outpatient meds - Time Time Spent: 50 to 70 Minutes - Inpatient Certification Medical Necessity: Need For IV Fluids, Risk of Complication if Not Cared For in Hospital
[2017-08-14] MEDS ORDERED: DIVALPROEX SODIUM 500 MG TAB.SR.24H PO SCH (14:00)
[2017-08-14 14:57] LABS: ANION GAP 17 (5-19); BLOOD UREA NITROGEN 13 mg/dL (7-20); CALCIUM 9.6 mg/dL (8.4-10.2); CARBON DIOXIDE 21 mmol/L (22-30); CHLORIDE 102 mmol/L (98-107); GLUCOSE 167 mg/dL (75-110); POTASSIUM 3.8 mmol/L (3.6-5.0); SODIUM 139.6 mmol/L (137-145)
[2017-08-14] MEDS ORDERED: LIDOCAINE 5% (700 MG) TRANSDERMAL ADH..PATCH TP SCH (15:00)
[2017-08-14] MEDS ORDERED: LIDOCAINE 5% (700 MG) TRANSDERMAL ADH..PATCH TP ONE (16:00)
[2017-08-14] MEDS ORDERED: INSULIN LISPRO 100 UNIT/ML 3 ML VIAL SUBCUT SCH (16:30)
[2017-08-14 17:21] VITALS: BP 119/58
[2017-08-14] MEDS ORDERED: MAGNESIUM OXIDE 400 MG TABLET PO SCH (18:00)
[2017-08-14] MEDS ORDERED: PANTOPRAZOLE SODIUM 40 MG VIAL IV SCH (22:00)
[2017-08-15] MEDS ORDERED: INSULIN DETEMIR 100 UNIT/ML 3 ML PEN SUBCUT SCH (08:00)
[2017-08-15] MEDS ORDERED: LIDOCAINE 5% (700 MG) TRANSDERMAL ADH..PATCH TP SCH (10:00)
--- NOTE | 2017-08-26 13:43 | PDOC DISCHARGE SUMMARY ---
General - Admit/Disc Date/PCP Admission Date/Primary Care Provider: 08/14/17 11:01 QUETA GOODWIN Discharge Date: 08/14/17 - Discharge Diagnosis (1) DKA (diabetic ketoacidoses) Is this a current diagnosis for this admission?: Yes (2) Nausea and vomiting Is this a current diagnosis for this admission?: Yes (3) Acute exacerbation of chronic low back pain Is this a current diagnosis for this admission?: Yes (4) Bipolar affective Is this a current diagnosis for this admission?: Yes - Additional Information Resuscitation Status: Full Code Home Medications: Clonazepam [Klonopin] 0.25 mg PO DAILYP PRN 06/10/17 Divalproex Sodium [Divalproex Sodium ER] 500 mg PO Q8 06/10/17 Insulin Detemir [Levemir Insulin 100 units/mL] 30 unit SQ QAM 06/10/17 Insulin Lispro [Humalog Insulin (Lispro) 100 unit/mL] 0 unit SQ .SLIDINGSCALE Linaclotide [Linzess] 290 mcg PO DAILY 08/14/17 History of Present Illness History of Present Illness: LIZA TOLEDO is a 32 year old female with a past medical history of Type 1 diabetes Bipolar disorder Chronic constipation Chronic back pain Substance abuse She presented to the hospital with intractable nausea and vomiting that started the day before. She had been unable to eat anything or take her insulin. In the emergency room she was found to be developing diabetic ketoacidosis and was started on IV fluids and an insulin drip and was referred for admission. The patient has had chronic problems with low back pain. She had been to [place] for an assessment of her chronic constipation which she felt was related to her back pain. She was given a prescription for Linzess which he says worked well for her constipation. She complained of back discomfort in the lower thoracic paraspinal muscle area. Hospital Course Hospital Course: The patient was continued on the Insulin drip and treated with a Lidocaine patch for her back pain. Blood glucoses were much improved. Around 18:30, she I was notified that she had decided to leave AMA. Physical Exam Vital Signs: Temp Pulse Resp BP Pulse Ox 99.2 F 101 H 18 119/58 L 99 08/14/17 16:00 08/14/17 16:00 08/14/17 16:00 08/14/17 16:00 08/14/17 16:00 Results Laboratory Results: 08/14/17 14:07 Impressions: Chest X-Ray 08/14/17 10:10 IMPRESSION: NO ACUTE RADIOGRAPHIC FINDING IN THE CHEST. Qualifiers - * PATIENT BEING DISCHARGED WITH ANY OF THE FOLLOWING DIAGNOSIS: No Plan Time Spent: Less than 30 Minutes
== END 2017-08-14 18:40 | disposition left against medical advice (07) | DRG 639 ==
LOC: ER 08:05 → EH 11:01 → 3N 13:19
PROVIDERS: ADMIT Internal Medicine; ATTEND Internal Medicine
DX: E10.10 Type 1 diabetes mellitus with ketoacidosis without coma (principal); M54.6 Pain in thoracic spine; E86.0 Dehydration; K59.09 Other constipation; F31.9 Bipolar disorder, unspecified; F41.9 Anxiety disorder, unspecified; F17.210 Nicotine dependence, cigarettes, uncomplicated; Z79.4 Long term (current) use of insulin; Z79.899 Other long term (current) drug therapy
CPT/HCPCS: 36415; 71046; 80048; 80053; 80307; 81001; 82803; 82962; 83735; 84100; 84703; 85025; 87040; 87086; 96361; 96374; 96375; 99285; J2270; J2405; J7030; S0164